=== PATIENT | male | born 1940 | race Caucasian/White ===

== ENCOUNTER → 2020-03-11 | Outpatient (CLI) | payer OTHER ==
[~2020-03-11] MED LIST: REGADENOSON 0.4 MG/5 ML PF SYG IVP SCH
== END | disposition home or self-care (01) ==
LOC: SHCH 08:10
PROVIDERS: ATTEND Internal Medicine Cardiovascular Disease
DX: I49.3 Ventricular premature depolarization (principal); R94.31 Abnormal electrocardiogram [ECG] [EKG]; R06.09 Other forms of dyspnea
CPT/HCPCS: 78452; 93017; 96374; A9500 ×2; J2785

== ENCOUNTER 2020-04-01 05:45 | Day surgery (SDC) | payer OTHER ==
[2020-03-29 12:06] LABS: BASOPHILS % (AUTO) 0.8 % (0.0-5.0); EOSINOPHILS % (AUTO) 2.9 % (0.0-8.0); LYMPHOCYTES % (AUTO) 22.7 % (21.0-51.0); MEAN CORPUSCULAR HEMOGLOBIN 29.9 pg (27.0-33.0); MEAN CORPUSCULAR HGB CONC 33.3 g/dL (32.0-36.0); MEAN CORPUSCULAR VOLUME 89.6 fL (79-99); MONOCYTES % (AUTO) 7.5 % (3.0-13.0); NEUTROPHILS % (AUTO) 65.8 % (40.0-77.0); PLATELET COUNT (AUTO) 248 K/uL (130-400); RED BLOOD CELL COUNT(AUTO) 4.69 MIL/uL (4.50-6.20); RED CELL DISTRIBUTION WIDTH 12.7 % (11.0-15.5); WHITE BLOOD COUNT (AUTO) 13.1 K/uL (4.8-10.8)
[2020-03-29 12:14] LABS: CREATININE 1.5 mg/dL (0.5-1.5); POTASSIUM 4.6 mmol/L (3.5-5.1)
[2020-03-29 12:16] LABS: INR 1.05 (0.85-1.15); PROTHROMBIN TIME 11.4 SEC (9.6-11.6)
[2020-03-29 12:17] LABS: PARTIAL THROMBOPLASTIN TIME 26.9 SEC (26.3-35.5)
[2020-03-29 12:21] LABS: APPEARANCE,URINE Clear (CLEAR); BILIRUBIN,URINE Negative (NEGATIVE); COLOR,URINE Yellow (YELLOW); GLUCOSE, URINE (UA) Negative (NEGATIVE); KETONES,URINE Negative (NEGATIVE); LEUKOCYTE ESTERASE ,URINE Negative (NEGATIVE); NITRATE,URINE Negative (NEGATIVE); OCCULT BLOOD,URINE Negative (NEGATIVE); PROTEIN,URINE Negative (NEGATIVE); UROBILINOGEN,URINE 0.2 mg/dL (0.2-1.0)
[2020-03-29 13:28] VITALS: BP 112/63
[~2020-04-01] VITALS: Ht 170.2 cm; Wt 102.5 kg
[2020-04-01] VITALS (9 sets, daily range): BP systolic 104–131; BP diastolic 67–76
[~2020-04-01 05:45] MED LIST changes: +ACET-2247 PO; +AMLO-258 PO; +ASCO100031 PO; +CALC600T15 PO; +CHOL100044 PO; +FINA5TAB41 PO; +FISH1CAP63 PO; +ISOS30TA92 PO; +LISI40TA9 PO; +MVI PO; -REGADENOSON 0.4 MG/5 ML PF SYG IVP SCH; +TAMS-1 PO
[2020-04-01 06:19] LABS: BASOPHILS % (AUTO) 0.8 % (0.0-5.0); EOSINOPHILS % (AUTO) 3.6 % (0.0-8.0); HEMATOCRIT 40.8 % (42-54); MEAN CORPUSCULAR HEMOGLOBIN 29.7 pg (27.0-33.0); MEAN CORPUSCULAR HGB CONC 33.8 g/dL (32.0-36.0); MEAN CORPUSCULAR VOLUME 87.9 fL (79-99); MONOCYTES % (AUTO) 7.2 % (3.0-13.0); NEUTROPHILS % (AUTO) 66.1 % (40.0-77.0); PLATELET COUNT (AUTO) 232 K/uL (130-400); RED BLOOD CELL COUNT(AUTO) 4.64 MIL/uL (4.50-6.20); RED CELL DISTRIBUTION WIDTH 12.7 % (11.0-15.5)
[2020-04-01] MEDS ORDERED: SODIUM CHLORIDE 0.9% 1000ML 1,000 ML IV ONE (06:22)
[2020-04-01] MEDS ORDERED: SODIUM CHLORIDE 0.9% 1000ML 1,000 ML IV SCH ×3 (08:00→11:45)
[2020-04-01] MEDS ORDERED: ROSU20TA31 PO (08:57)
[2020-04-01] MEDS ORDERED: ASPI-1197 PO (08:57)
[2020-04-01] MEDS ORDERED: NITROGLYCERIN 2 MG/VIAL VIAL IV ONE (10:07)
[2020-04-01] MEDS ORDERED: IOHEXOL 350 MG/ML 100ML INFUS..BTL IV ONE (10:07)
[2020-04-01] MEDS ORDERED: NICARDIPINE HCL 25 MG/10 ML ML IV ONE (10:07)
[2020-04-01] MEDS ORDERED: LIDOCAINE HCL 1% 20 ML VIAL ONE (10:07)
[2020-04-01] MEDS ORDERED: MEPERIDINE-PF 25 MG/ML SYG ONE ×2 (10:08→10:55)
[2020-04-01] MEDS ORDERED: MIDAZOLAM HCL 1 MG/ML 2ML VIAL ONE ×2 (10:08→10:55)
[2020-04-01] MEDS ORDERED: HEPARIN SODIUM 1000UNIT/ML 10ML VIAL ONE (10:08)
[2020-04-01] MEDS ORDERED: ATROPINE SULFATE 0.1 MG/ML 10 ML SYG IVP ONE (10:48)
== END 2020-04-01 15:24 | disposition home or self-care (01) ==
LOC: DAH 05:45 → UNDOADMIN 05:46 → DAHIP 05:46 → DAH 05:49
PROVIDERS: ATTEND Internal Medicine Cardiovascular Disease
DX: I25.119 Atherosclerotic heart disease of native coronary artery with unspecified angina pectoris (principal); I12.9 Hypertensive chronic kidney disease with stage 1 through stage 4 chronic kidney disease, or unspecified chronic kidney disease; N18.9 Chronic kidney disease, unspecified; E78.5 Hyperlipidemia, unspecified; I44.0 Atrioventricular block, first degree; E66.9 Obesity, unspecified; I49.3 Ventricular premature depolarization; Z98.890 Other specified postprocedural states; Z85.46 Personal history of malignant neoplasm of prostate; Z90.49 Acquired absence of other specified parts of digestive tract; Z87.891 Personal history of nicotine dependence; Z72.89 Other problems related to lifestyle; Z82.49 Family history of ischemic heart disease and other diseases of the circulatory system; Z68.36 Body mass index [BMI] 36.0-36.9, adult; Z79.01 Long term (current) use of anticoagulants
CPT/HCPCS: 36415 ×2; 71045; 80048; 81003; 85025 ×2; 85610; 85730; 93005; 93458; A4215; A4216; A4221; A4222; A4223 ×3; A4606; A4663; C1769; C1894; J0461; J1644 ×2; J2175 ×2; J2250 ×2; J3490 ×2; J7030; Q9965; Q9967; 96360; 96361; 99156; 99157

== ENCOUNTER 2020-04-13 10:30 | Inpatient (IN) | payer OTHER ==
[~2020-04-13] VITALS: Ht 167.6 cm; Wt 111.1 kg
[~2020-04-13 10:30] MED LIST changes: +ASPI-1197 PO; +CALC-1125 PO; -CALC600T15 PO; +CHOL100020 PO; -CHOL100044 PO; +ROSU20TA31 PO
[2020-04-15 13:52] LABS: BASOPHILS % (AUTO) 0.7 % (0.0-5.0); EOSINOPHILS % (AUTO) 3.5 % (0.0-8.0); HEMATOCRIT 41.8 % (42-54); LYMPHOCYTES % (AUTO) 17.5 % (21.0-51.0); MEAN CORPUSCULAR HEMOGLOBIN 29.7 pg (27.0-33.0); MEAN CORPUSCULAR HGB CONC 33.5 g/dL (32.0-36.0); MEAN CORPUSCULAR VOLUME 88.7 fL (79-99); NEUTROPHILS % (AUTO) 70.9 % (40.0-77.0); PLATELET COUNT (AUTO) 257 K/uL (130-400); RED BLOOD CELL COUNT(AUTO) 4.71 MIL/uL (4.50-6.20); RED CELL DISTRIBUTION WIDTH 12.5 % (11.0-15.5); WHITE BLOOD COUNT (AUTO) 12.7 K/uL (4.8-10.8)
[2020-04-15 14:02] LABS: HEMOGLOBIN A1C 5.7 % (4.0-6.0)
[2020-04-15 14:03] LABS: INR 1.05 (0.85-1.15); PROTHROMBIN TIME 11.4 SEC (9.6-11.6)
[2020-04-15 14:04] LABS: PARTIAL THROMBOPLASTIN TIME 26.3 SEC (26.3-35.5)
[2020-04-15 14:06] LABS: ALBUMIN 4.1 g/dL (3.5-5.0); BILIRUBIN,TOTAL 0.4 mg/dL (0.2-1.0); CREATININE 1.6 mg/dL (0.5-1.5); POTASSIUM 4.1 mmol/L (3.5-5.1); TOTAL PROTEIN, SERUM 7.6 g/dL (6.0-8.3)
[2020-04-16 13:11] VITALS: BP 118/70
[2020-04-17] VITALS (40 sets, daily range): BP systolic 75–162; BP diastolic 41–83
[2020-04-17] MEDS ORDERED: LACTATED RINGERS 1000ML 1,000 ML IV ONE (06:25)
[2020-04-17] MEDS ORDERED: CEFAZOLIN SODIUM 1 GM VIAL ONE ×2 (06:26→06:59)
[2020-04-17] MEDS ORDERED: PAPAVERINE HCL 30 MG/ML 2ML VIAL ONE (06:59)
[2020-04-17] MEDS ORDERED: AMINOCAPROIC ACID 5,000MG VIAL 15,000 MG in 0.9% NACL 500ML IV.SOLN 420 ML IV PRN (07:00)
[2020-04-17] MEDS ORDERED: NOREPINEPHRINE BITARTRATE 8 MG in DEXTROSE 5%-WATER 250 ML IV PRN (07:00)
[2020-04-17] MEDS ORDERED: EPINEPHRINE PF 1MG AMP 10 MG in 0.9% NACL 250ML 240 ML IV PRN (07:00)
[2020-04-17] MEDS ORDERED: NITROGLYCERIN 50MG/D5W 250ML 1 BOT ONE (07:08)
[2020-04-17] MEDS ORDERED: CEFAZOLIN SODIUM 1 GM VIAL IVP ONE (08:00)
[2020-04-17] MEDS ORDERED: EPINEPHRINE PF 1MG AMP ONE (08:09)
[2020-04-17] MEDS ORDERED: SODIUM BICARB 50MEQ 50ML VIAL 100 ML ONE (08:09)
[2020-04-17] MEDS ORDERED: HEPARIN 10,000 UNIT/10ML (1,000 UNIT/ML) VIAL ONE ×2 (08:09→08:31)
[2020-04-17] MEDS ORDERED: PROTAMINE SULFATE 10 MG/ML 25ML VIAL IV ONE (08:09)
[2020-04-17] MEDS ORDERED: MIDAZOLAM HCL 1 MG/ML 2ML VIAL ONE (08:09)
[2020-04-17] MEDS ORDERED: AMINOCAPROIC ACID 5,000MG VIAL ONE (08:09)
[2020-04-17] MEDS ORDERED: ESMOLOL HCL 10 MG/ML 10 ML VIAL ONE (08:09)
[2020-04-17] MEDS ORDERED: LIDOCAINE PF 100MG/5ML (2%) SYRINGE 5ML ONE (08:09)
[2020-04-17] MEDS ORDERED: NOREPINEPHRINE BITARTRATE 1 MG/1 ML ML IV ONE (08:09)
[2020-04-17] MEDS ORDERED: FENTANYL CITRATE PF 50 MCG/1 ML 20ML VIAL IJ ONE (08:09)
[2020-04-17] MEDS ORDERED: PROPOFOL 10 MG/ML 20ML VIAL IV ONE (08:09)
[2020-04-17] MEDS ORDERED: ROCURONIUM 10MG/1ML SYR 10 MG/ML ML ONE (08:10)
[2020-04-17] MEDS ORDERED: KETAMINE HCL 100 MG/ML 5ML VIAL IJ ONE (08:12)
[2020-04-17 08:54] LABS: ABG HCO3 22.2 mmol/L (21.0-28.0); ABG OXYGEN SATURATION 98.7 % (95.0-99.0); ABG PCO2 45 mmHg (35-48)
[2020-04-17] MEDS ORDERED: ONDANSETRON 4MG INJ IV PRN (09:30)
[2020-04-17] MEDS ORDERED: 0.9%NACL 10ML VIAL IVP PRN (09:30)
[2020-04-17] MEDS ORDERED: ACETAMINOPHEN 650 MG SUPPOSITORY RC PRN (09:30)
[2020-04-17] MEDS ORDERED: PROPOFOL 1000 MG/100 ML 100 ML IV PRN (09:30)
[2020-04-17] MEDS ORDERED: GLUCAGON 1MG KIT 1 MG ML IM PRN (09:30)
[2020-04-17] MEDS ORDERED: NITROGLYCERIN 50MG/D5W 250ML 250 BOT IV SCH (09:30)
[2020-04-17] MEDS ORDERED: ACETAMINOPHEN 325 MG TAB PO PRN (09:30)
[2020-04-17] MEDS ORDERED: EPINEPHRINE PF 1MG AMP 10 MG in DEXTROSE 5%-WATER 250 ML IV PRN (09:30)
[2020-04-17] MEDS ORDERED: AMINOCAPROIC ACID 5,000MG VIAL 15,000 MG in 0.9% NACL 250ML 250 ML IV SCH (09:30)
[2020-04-17] MEDS ORDERED: NOREPINEPHRIN 4MG/NS 250ML 250 ML IV PRN (09:30)
[2020-04-17] MEDS ORDERED: CALCIUM GLUC 1GM 1 GM in 0.9%NACL 50ML 50 ML IV PRN (09:30)
[2020-04-17] MEDS ORDERED: MORPHINE 4 MG SYG IV PRN (09:30)
[2020-04-17] MEDS ORDERED: POTASSIUM PHOS 15 mMOL+NS250ML 250 ML IV PRN (09:30)
[2020-04-17] MEDS ORDERED: 0.9%NACL 1000ML 1,000 ML IV SCH (09:30)
[2020-04-17] MEDS ORDERED: DEXTROSE 50%-WATER 50 ML DISP.SYRIN IV PRN (09:30)
[2020-04-17] MEDS ORDERED: MAGNESIUM 2GM PREMIX 50ML 50 ML IV PRN (09:30)
[2020-04-17] MEDS ORDERED: ALBUMIN (HUMAN) 5% 250 ML IV PRN (09:30)
[2020-04-17] MEDS ORDERED: 0.9% NACL 500ML IV.SOLN 500 ML IV SCH (09:30)
[2020-04-17] MEDS ORDERED: MORPHINE 2 MG SYG IV PRN (09:30)
[2020-04-17] MEDS: FAMOTIDINE 20MG VIAL IV SCH (10:27)
[2020-04-17 10:39] LABS: ABG BASE EXCESS -5.9 mmol/L (-2.0-3.0); ABG HCO3 22.5 mmol/L (21.0-28.0); ABG OXYGEN SATURATION 97.5 % (95.0-99.0); ABG PCO2 58 mmHg (35-48)
[2020-04-17] MEDS ORDERED: ALBUMIN (HUMAN) 5% 250 ML IV ONE (10:56)
[2020-04-17] MEDS ORDERED: EPHEDRINE SULFATE 50 MG/ML AMPULE ONE (11:04)
[2020-04-17 11:42] LABS: ABG BASE EXCESS -5.3 mmol/L (-2.0-3.0); ABG HCO3 21.9 mmol/L (21.0-28.0); ABG OXYGEN SATURATION 93.3 % (95.0-99.0); ABG PCO2 50 mmHg (35-48)
[2020-04-17] MEDS: SODIUM BICARB 50MEQ 50ML VIAL IV PRN ×2 (11:50→14:15)
[2020-04-17 12:02] LABS: CREATININE 1.3 mg/dL (0.5-1.5); MAGNESIUM 1.4 mg/dL (1.80-2.40); PHOSPHORUS 4.9 mg/dL (2.5-4.9); POTASSIUM 3.3 mmol/L (3.5-5.1)
[2020-04-17 12:03] LABS: INR 1.16 (0.85-1.15); PROTHROMBIN TIME 12.5 SEC (9.6-11.6)
[2020-04-17] MEDS: POTASSIUM CHLORIDE 20MEQ/100ML 100 ML IV PRN ×6 (12:03→22:42)
[2020-04-17 12:05] LABS: PARTIAL THROMBOPLASTIN TIME 21.6 SEC (26.3-35.5)
[2020-04-17 12:14] LABS: HEMATOCRIT 36.2 % (42-54); MEAN CORPUSCULAR HEMOGLOBIN 29.7 pg (27.0-33.0); MEAN CORPUSCULAR HGB CONC 33.4 g/dL (32.0-36.0); MEAN CORPUSCULAR VOLUME 88.7 fL (79-99); PLATELET COUNT (AUTO) 255 K/uL (130-400); RED BLOOD CELL COUNT(AUTO) 4.08 MIL/uL (4.50-6.20); RED CELL DISTRIBUTION WIDTH 12.6 % (11.0-15.5)
[2020-04-17 12:15] LABS: WHITE BLOOD COUNT (AUTO) 39.1 K/uL (4.8-10.8)
[2020-04-17] MEDS: INSULIN REGULAR, HUMAN 3ML 100 UNIT in 0.9%NACL 100ML 99 ML IV SCH ×2 (12:56)
[2020-04-17 12:59] LABS: ABG HCO3 22.1 mmol/L (21.0-28.0); ABG OXYGEN SATURATION 95.4 % (95.0-99.0); ABG PCO2 40 mmHg (35-48)
[2020-04-17 13:02] LABS: BAND NEUTROPHILS % (MANUAL) 5 % (0-2); LYMPHOCYTES % (MANUAL) 15 % (22-44); MAN.DIFF COMMENT-IMPRESSION MANUAL DIFFERENTIAL; MONOCYTES % (MANUAL) 7 % (2-9); PLATELET MORPHOLOGY COMMENT ADEQUATE; SEGMENTED NEUTROPHILS % 73 % (40-70)
[2020-04-17 14:03] LABS: ABG BASE EXCESS -3.4 mmol/L (-2.0-3.0); ABG HCO3 21.3 mmol/L (21.0-28.0); ABG OXYGEN SATURATION 95.1 % (95.0-99.0); ABG PCO2 37 mmHg (35-48)
[2020-04-17] MEDS: CEFAZOLIN SODIUM 1 GM VIAL IV SCH ×2 (16:22→22:28)
[2020-04-17] MEDS: TRAMADOL HCL 50 MG TABLET PO PRN ×2 (17:30→23:12)
[2020-04-17] MEDS ORDERED: PHARMACY COMMUNICATION MISC SCH ×2 (19:30)
[2020-04-17] MEDS ORDERED: NOREPINEPHRINE BITARTRATE 8 MG in 0.9% NACL 250ML 250 ML IV PRN (19:45)
[2020-04-17] MEDS: TAMSULOSIN HCL 0.4 MG CAP.ER.24H PO SCH (21:14)
[2020-04-17] MEDS: FINASTERIDE 5 MG TABLET PO SCH (21:14)
[2020-04-17] MEDS: ATORVASTATIN 40 MG TABLET PO SCH (21:14)
[2020-04-17 22:22] LABS: CREATININE 1.7 mg/dL (0.5-1.5); MAGNESIUM 2.3 mg/dL (1.80-2.40); POTASSIUM 3.9 mmol/L (3.5-5.1)
[2020-04-18] VITALS (29 sets, daily range): BP systolic 110–173; BP diastolic 52–93
[2020-04-18] MEDS: POTASSIUM CHLORIDE 20MEQ/100ML 100 ML IV PRN (00:13)
[2020-04-18] MEDS: TRAMADOL HCL 50 MG TABLET PO PRN ×2 (01:32→17:47)
[2020-04-18 04:46] LABS: ABG BASE EXCESS 1.9 mmol/L (-2.0-3.0); ABG HCO3 25.4 mmol/L (21.0-28.0); ABG OXYGEN SATURATION 91.5 % (95.0-99.0); ABG PCO2 36 mmHg (35-48)
[2020-04-18 04:53] LABS: HEMATOCRIT 34.4 % (42-54); MEAN CORPUSCULAR HEMOGLOBIN 30.2 pg (27.0-33.0); MEAN CORPUSCULAR HGB CONC 34.9 g/dL (32.0-36.0); MEAN CORPUSCULAR VOLUME 86.4 fL (79-99); RED BLOOD CELL COUNT(AUTO) 3.98 MIL/uL (4.50-6.20); RED CELL DISTRIBUTION WIDTH 12.9 % (11.0-15.5); WHITE BLOOD COUNT (AUTO) 27.2 K/uL (4.8-10.8)
[2020-04-18 05:21] LABS: INR 1.1 (0.85-1.15); PROTHROMBIN TIME 11.9 SEC (9.6-11.6)
[2020-04-18 05:22] LABS: CREATININE 1.4 mg/dL (0.5-1.5); PHOSPHORUS 2.2 mg/dL (2.5-4.9); POTASSIUM 5.2 mmol/L (3.5-5.1)
[2020-04-18 05:23] LABS: PARTIAL THROMBOPLASTIN TIME 24.2 SEC (26.3-35.5)
[2020-04-18] MEDS: CEFAZOLIN SODIUM 1 GM VIAL IV SCH (06:12)
[2020-04-18] MEDS: ASPIRIN 325MG EC TAB PO SCH (08:58)
[2020-04-18] MEDS: FAMOTIDINE 20MG VIAL IV SCH (08:58)
[2020-04-18] MEDS: FUROSEMIDE 20MG VIAL IV SCH ×2 (08:58→20:34)
[2020-04-18] MEDS: INSULIN REGULAR, HUMAN 3ML 100 UNIT in 0.9%NACL 100ML 99 ML IV SCH ×2 (13:47)
[2020-04-18] MEDS: TAMSULOSIN HCL 0.4 MG CAP.ER.24H PO SCH (20:34)
[2020-04-18] MEDS: FINASTERIDE 5 MG TABLET PO SCH (20:34)
[2020-04-18] MEDS: ATORVASTATIN 40 MG TABLET PO SCH (20:34)
[2020-04-19] VITALS (25 sets, daily range): BP systolic 81–152; BP diastolic 45–95
[2020-04-19] MEDS: TRAMADOL HCL 50 MG TABLET PO PRN (03:16)
[2020-04-19 04:40] LABS: MEAN CORPUSCULAR HEMOGLOBIN 30.3 pg (27.0-33.0); MEAN CORPUSCULAR HGB CONC 34.7 g/dL (32.0-36.0); MEAN CORPUSCULAR VOLUME 87.4 fL (79-99); PLATELET COUNT (AUTO) 194 K/uL (130-400); RED BLOOD CELL COUNT(AUTO) 3.66 MIL/uL (4.50-6.20); RED CELL DISTRIBUTION WIDTH 13.2 % (11.0-15.5)
[2020-04-19 04:43] LABS: WHITE BLOOD COUNT (AUTO) 30.5 K/uL (4.8-10.8)
[2020-04-19 04:55] LABS: CREATININE 1.4 mg/dL (0.5-1.5)
[2020-04-19 05:55] LABS: BAND NEUTROPHILS % (MANUAL) 7 % (0-2); LYMPHOCYTES % (MANUAL) 4 % (22-44); MAN.DIFF COMMENT-IMPRESSION MANUAL DIFFERENTIAL; MONOCYTES % (MANUAL) 3 % (2-9); PLATELET MORPHOLOGY COMMENT ADEQUATE; REACTIVE LYMPHOCYTES 1 % (0-0); SEGMENTED NEUTROPHILS % 85 % (40-70)
[2020-04-19] MEDS: ASPIRIN 325MG EC TAB PO SCH (08:12)
[2020-04-19] MEDS: FAMOTIDINE 20MG VIAL IV SCH (08:13)
[2020-04-19] MEDS: METOPROLOL TARTRATE 25 MG TAB PO SCH ×2 (08:13→20:26)
[2020-04-19] MEDS: FUROSEMIDE 20MG VIAL IV SCH (08:14)
[2020-04-19] MEDS: FUROSEMIDE 20 MG TABLET PO SCH ×2 (08:14→17:00)
[2020-04-19] MEDS: FINASTERIDE 5 MG TABLET PO SCH (20:26)
[2020-04-19] MEDS: TAMSULOSIN HCL 0.4 MG CAP.ER.24H PO SCH (20:26)
[2020-04-19] MEDS: ATORVASTATIN 40 MG TABLET PO SCH (20:26)
[2020-04-20] VITALS (7 sets, daily range): BP systolic 110–142; BP diastolic 67–97
[2020-04-20 05:17] LABS: HEMATOCRIT 33.3 % (42-54); MEAN CORPUSCULAR HEMOGLOBIN 29.8 pg (27.0-33.0); MEAN CORPUSCULAR HGB CONC 33.6 g/dL (32.0-36.0); MEAN CORPUSCULAR VOLUME 88.6 fL (79-99); RED BLOOD CELL COUNT(AUTO) 3.76 MIL/uL (4.50-6.20); RED CELL DISTRIBUTION WIDTH 12.8 % (11.0-15.5)
[2020-04-20 05:32] LABS: CREATININE 1.3 mg/dL (0.5-1.5); POTASSIUM 4.1 mmol/L (3.5-5.1)
[2020-04-20] MEDS: ENOXAPARIN SODIUM 30 MG/0.3 ML SQ SCH (08:14)
[2020-04-20] MEDS: FAMOTIDINE 20MG VIAL IV SCH (08:14)
[2020-04-20] MEDS: FUROSEMIDE 20 MG TABLET PO SCH ×3 (08:14→19:50)
[2020-04-20] MEDS: METOPROLOL TARTRATE 25 MG TAB PO SCH ×2 (08:15→19:49)
[2020-04-20] MEDS: ASPIRIN 325MG EC TAB PO SCH (08:15)
[2020-04-20] MEDS: FINASTERIDE 5 MG TABLET PO SCH (19:49)
[2020-04-20] MEDS: TAMSULOSIN HCL 0.4 MG CAP.ER.24H PO SCH (19:49)
[2020-04-20] MEDS: TRAMADOL HCL 50 MG TABLET PO PRN (19:50)
[2020-04-20] MEDS: ATORVASTATIN 40 MG TABLET PO SCH (19:50)
[2020-04-21 04:04] LABS: HEMATOCRIT 34.4 % (42-54); MEAN CORPUSCULAR HGB CONC 32.6 g/dL (32.0-36.0); MEAN CORPUSCULAR VOLUME 89.1 fL (79-99); RED BLOOD CELL COUNT(AUTO) 3.86 MIL/uL (4.50-6.20); RED CELL DISTRIBUTION WIDTH 12.6 % (11.0-15.5); WHITE BLOOD COUNT (AUTO) 17.6 K/uL (4.8-10.8)
[2020-04-21 04:18] VITALS: BP 117/73
[2020-04-21 04:22] LABS: CREATININE 1.3 mg/dL (0.5-1.5); POTASSIUM 3.2 mmol/L (3.5-5.1)
[2020-04-21 08:00] VITALS: BP 134/83
[2020-04-21] MEDS: ENOXAPARIN SODIUM 30 MG/0.3 ML SQ SCH (08:47)
[2020-04-21] MEDS: ASPIRIN 325MG EC TAB PO SCH (08:48)
[2020-04-21] MEDS: METOPROLOL TARTRATE 25 MG TAB PO SCH ×2 (08:48→21:42)
[2020-04-21] MEDS: FAMOTIDINE 20MG VIAL IV SCH (08:48)
[2020-04-21] MEDS: FUROSEMIDE 20 MG TABLET PO SCH ×3 (08:49→21:43)
[2020-04-21] MEDS ORDERED: KCL 20 MEQ ERTAB PO PRN (10:15)
[2020-04-21] MEDS: POTASSIUM CHLORIDE 10% ELIXIR 20 MEQ/15 ML UDCUP PO PRN ×2 (10:38→14:18)
[2020-04-21 11:23] VITALS: BP 138/73
[2020-04-21 16:00] VITALS: BP 151/94
[2020-04-21 20:05] VITALS: BP 129/72
[2020-04-21] MEDS: FINASTERIDE 5 MG TABLET PO SCH (21:42)
[2020-04-21] MEDS: ATORVASTATIN 40 MG TABLET PO SCH (21:42)
[2020-04-21] MEDS: TAMSULOSIN HCL 0.4 MG CAP.ER.24H PO SCH (21:42)
[2020-04-21 23:46] VITALS: BP 148/88
[2020-04-22 04:25] LABS: CREATININE 1.4 mg/dL (0.5-1.5); POTASSIUM 3.6 mmol/L (3.5-5.1)
[2020-04-22 04:30] VITALS: BP 121/78
[2020-04-22 08:00] VITALS: BP 123/65
[2020-04-22] MEDS: ASPIRIN 325MG EC TAB PO SCH (09:43)
[2020-04-22] MEDS: FUROSEMIDE 20 MG TABLET PO SCH (09:44)
[2020-04-22] MEDS: METOPROLOL TARTRATE 25 MG TAB PO SCH (09:44)
[2020-04-22] MEDS: FAMOTIDINE 20MG VIAL IV SCH (09:44)
[2020-04-22] MEDS: ENOXAPARIN SODIUM 30 MG/0.3 ML SQ SCH (09:45)
[2020-04-22 12:26] VITALS: BP 125/69
[2020-04-22] MEDS ORDERED: APIX5TAB PO (15:35)
[2020-04-22] MEDS ORDERED: METO25 PO (15:35)
[2020-04-22] MEDS ORDERED: FURO20TA6 PO (15:35)
[2020-04-22] MEDS ORDERED: FUROSEMIDE 20 MG TABLET PO SCH (21:00)
[2020-04-22] MEDS ORDERED: APIXABAN 5 MG TABLET PO SCH (21:00)
== END 2020-04-22 17:12 | disposition home health service (06) | DRG 235 ==
LOC: EDSTATUS 10:30 → DAHIP 04-17 06:03 → 2CH 04-17 11:29 → 4DH 04-19 17:37
PROVIDERS: ADMIT Thoracic Surgery (Cardiothoracic Vascular Surgery); ATTEND Thoracic Surgery (Cardiothoracic Vascular Surgery)
PROC: 02100Z9 Bypass Coronary Artery, One Artery from Left Internal Mammary, Open Approach (ICD-10-PCS; principal; 2020-04-17 08:05)
PROC: 021109W Bypass Coronary Artery, Two Arteries from Aorta with Autologous Venous Tissue, Open Approach (ICD-10-PCS; 2020-04-17 08:05)
PROC: 06BQ4ZZ Excision of Left Saphenous Vein, Percutaneous Endoscopic Approach (ICD-10-PCS; 2020-04-17 08:05)
DX: I25.10 Atherosclerotic heart disease of native coronary artery without angina pectoris (principal); I50.33 Acute on chronic diastolic (congestive) heart failure; E78.5 Hyperlipidemia, unspecified; R09.02 Hypoxemia; E87.70 Fluid overload, unspecified; E78.00 Pure hypercholesterolemia, unspecified; E78.1 Pure hyperglyceridemia; R06.89 Other abnormalities of breathing; I48.0 Paroxysmal atrial fibrillation; Z20.822 Contact with and (suspected) exposure to COVID-19; Z79.82 Long term (current) use of aspirin; Z79.899 Other long term (current) drug therapy; I11.0 Hypertensive heart disease with heart failure
CPT/HCPCS: 36415; 71045; 71046; 80048; 80053; 80061; 82435; 82803; 82947; 82948; 83036; 83605; 83735; 84100; 84132; 84295; 85018; 85025; 85027; 85347; 85610; 85730; 86850; 86900; 86901; 86922; 93005; 93880; 94002; 94010; 97039; A4357; A7048; G0378; J0171; J0610; J0690; J1644; J1650; J1815; J1940; J2001; J2250; J2440; J2704; J2720; J3010; J3475; J3480; J3490; J7030; J7040; J7060; J7120; P9045; U0003

== ENCOUNTER → 2020-06-17 | Outpatient (CLI) | payer OTHER ==
[~2020-06-17] MED LIST changes: -AMLO-258 PO; +APIX5TAB PO; -CHOL100020 PO; +CHOL100044 PO; +FURO20TA6 PO; -ISOS30TA92 PO; -LISI40TA9 PO; +METO25 PO
== END | disposition home or self-care (01) ==
LOC: SLP 20:06
PROVIDERS: ATTEND Internal Medicine Cardiovascular Disease
DX: G47.30 Sleep apnea, unspecified (principal)
CPT/HCPCS: 95810

== ENCOUNTER 2021-11-06 06:43 | Day surgery (SDC) | payer OTHER ==
[2021-11-03 09:55] LABS: EOSINOPHILS % (AUTO) 4.1 % (0.0-8.0); HEMATOCRIT 41.8 % (42-54); LYMPHOCYTES % (AUTO) 25.5 % (21.0-51.0); MEAN CORPUSCULAR HEMOGLOBIN 25.5 pg (27.0-33.0); MEAN CORPUSCULAR HGB CONC 31.8 g/dL (32.0-36.0); MEAN CORPUSCULAR VOLUME 80.2 fL (79-99); MONOCYTES % (AUTO) 8.4 % (3.0-13.0); NEUTROPHILS % (AUTO) 60.5 % (40.0-77.0); PLATELET COUNT (AUTO) 258 K/uL (130-400); RED BLOOD CELL COUNT(AUTO) 5.21 MIL/uL (4.50-6.20); RED CELL DISTRIBUTION WIDTH 14.3 % (11.0-15.5)
[2021-11-03 10:03] LABS: CREATININE 1.5 mg/dL (0.5-1.5); POTASSIUM 4.6 mmol/L (3.5-5.1)
[2021-11-03 10:09] LABS: PROTHROMBIN TIME 10.9 SEC (9.6-11.6)
[2021-11-03 10:11] LABS: PARTIAL THROMBOPLASTIN TIME 28.7 SEC (26.3-35.5)
[2021-11-05 09:32] VITALS: BP 135/66
[2021-11-06] VITALS (19 sets, daily range): BP systolic 125–150; BP diastolic 48–84
[~2021-11-06] VITALS: Ht 170.2 cm; Wt 97.5 kg
[2021-11-06] MEDS: CEFAZOLIN SODIUM 1 GM VIAL IVP SCH ×2 (06:00→09:00)
[~2021-11-06 06:43] MED LIST changes: -ACET-2247 PO; +ACET-66 PO; +AMLO-257 PO; -ASPI-1197 PO; -CALC-1125 PO; +CALCIUM CITRATE PO; -CHOL100044 PO; +EZET10TA48 PO; -FISH1CAP63 PO; -FURO20TA6 PO; +GABA-529 PO; +LIDOP TP; +LISI10TA24 PO; -METO25 PO; +MULT-660 PO; -MVI PO; +OMEG-148 PO; -ROSU20TA31 PO; -TAMS-1 PO
[2021-11-06] MEDS ORDERED: LACTATED RINGERS 1000ML 1,000 ML IV ONE ×2 (07:07→07:47)
[2021-11-06] MEDS ORDERED: BACITRACIN 28.4 GM OINT TP ONE (07:25)
[2021-11-06] MEDS ORDERED: LIDOCAINE 1%-EPI 1:100,000 20 ML VIAL IJ SCH (07:30)
[2021-11-06] MEDS ORDERED: PROPOFOL 10 MG/ML 20ML VIAL IV ONE (08:51)
[2021-11-06] MEDS ORDERED: ONDANSETRON 4MG INJ ONE (08:51)
[2021-11-06] MEDS ORDERED: FENTANYL CITRATE PF 50 MCG/1 ML 2ML VIAL ONE ×2 (08:51→09:50)
[2021-11-06] MEDS ORDERED: ROCURONIUM 10MG/1ML SYR 10 MG/ML ML ONE (08:52)
[2021-11-06] MEDS ORDERED: MIDAZOLAM HCL 1 MG/ML 2ML VIAL ONE (08:52)
[2021-11-06] MEDS ORDERED: MINERAL OIL 30 ML UDCUP ONE (09:15)
[2021-11-06] MEDS ORDERED: EPHEDRINE SULFATE 50 MG/ML AMPULE ONE (09:32)
[2021-11-06] MEDS ORDERED: GLYCOPYRROLATE 1 MG/5 ML SYRINGE ONE (09:47)
[2021-11-06] MEDS ORDERED: NEOSTIGMINE 5MG/5ML SYR IV ONE (09:48)
== END 2021-11-06 12:10 | disposition home or self-care (01) ==
LOC: DAH 06:43
PROVIDERS: ATTEND Otolaryngology Plastic Surgery within the Head & Neck
DX: C43.4 Malignant melanoma of scalp and neck (principal); I10 Essential (primary) hypertension; I25.10 Atherosclerotic heart disease of native coronary artery without angina pectoris; Z79.01 Long term (current) use of anticoagulants; Z79.899 Other long term (current) drug therapy; Z95.1 Presence of aortocoronary bypass graft
CPT/HCPCS: 80048; 85025; 85610; 85730; 87426; 36415; 11626; 15120; A6260; A4663; A6207; A4606; J7120 ×2; J3010 ×2; J0690; J3490 ×3; J2710; J2250; J2704; J2405; A6223; A4649; A4215; A4223; A4222; A4221

== ENCOUNTER → 2023-06-16 | Outpatient (CLI) | payer OTHER ==
[~2023-06-16] MED LIST changes: +ALBUTEROL 0.083% 2.5 MG/3 ML INH IH ONE
[2023-06-16 13:56] LABS: ALBUMIN 3.9 g/dL (3.5-5.0); BILIRUBIN,DIRECT 0.1 mg/dL (0.0-0.3); BILIRUBIN,TOTAL 0.6 mg/dL (0.2-1.0); TOTAL PROTEIN, SERUM 7.6 g/dL (6.0-8.3)
== END | disposition home or self-care (01) ==
LOC: RESP 10:00
PROVIDERS: ATTEND Chiropractor
DX: C22.8 Malignant neoplasm of liver, primary, unspecified as to type (principal); J44.9 Chronic obstructive pulmonary disease, unspecified
CPT/HCPCS: 36415; 71046; 80076; 94060